=== PATIENT | female | born 2000 | race Caucasian/White ===

== ENCOUNTER 2018-06-15 18:47 | Emergency (ER) | payer MEDICAID ==
[~2018-06-15] VITALS: Ht 152.4 cm; Wt 52.6 kg
[2018-06-15 18:54] VITALS: BP 109/57; PULSE 83; RESP 18; Ht 152.4 cm; Wt 52.6 kg
--- NOTE | 2018-06-15 21:04 | ERD ---
ER Documentation Chief Complaint Chief Complaint 6 wks preg,vag bleed x 1day, pelvic&back pains, too HPI This is a 17-year-old female who presents emergency department with complaints of vaginal bleeding, pelvic pain for about a day. Stated that this started around this 5:30 PM today. Change one vaginal pad today. Patient stated that he was bright red with no clots. LMP: 04/21/2018. BENTLEY: 01/21/2019. . Denies headache, dizziness, blurred vision, neck pain, neck stiffness, difficult swallowing, difficult breathing lying flat, shoulder pain, chest pain, back pain, nausea, vomiting, constipation, diarrhea, urinary symptoms, difficulty walking, recent travel, recent long travel, recent exposure to any illness, rece nt antibiotic use in the last 3 months, fever, chills, seizures, calf pain. No known drug allergies. No past medical history. No surgeries. Medication: vitamins. ROS All systems reviewed and are negative except as per history of present illness. Medications Home Meds Active Scripts Vit No.124/Iron/FA ( Vitamin Tablet) 1 Each Tablet, 1 EACH PO DAILY, #30 TAB Prov:ERINBANMADYAR F 06/15/18 Acetaminophen* (Tylophen*) 500 Mg Capsule, 1 CAP PO Q6H PRN for PAIN AND OR ELEVATED TEMP, #20 CAP Prov:BRAYANILABANMADYAR F 06/15/18 Allergies Allergies: Coded Allergies: No Known Allergy (Unverified , 06/15/18) PMhx/Soc Medical and Surgical Hx: pt denies Medical Hx, pt denies Surgical Hx Hx Alcohol Use: No Hx Substance Use: No Hx Tobacco Use: No Smoking Status: Never smoker Physical Exam Vitals Vital Signs Date Temp Pulse Resp B/P (MAP) Pulse Ox O2 O2 Flow FiO2 Time Delivery Rate 06/15/18 98.9 83 18 109/57 100 18:54 (74) Physical Exam Const: No acute distress Head: Atraumatic Eyes: Normal Conjunctiva ENT: Normal External Ears, Nose and Mouth. Neck: Full range of motion. No meningismus. Resp: Clear to auscultation bilaterally Cardio: Regular rate and rhythm, no murmurs Abd: Soft, non tender, non distended. Normal bowel sounds. Negative Gillis sign. No CVA tenderness. Skin: No petechiae or rashes. Color appears normal for ethnicity. Back: No midline or flank tenderness Ext: No cyanosis, or edema Neur: Awake and alert. No neurological deficits. Psych: Normal Mood and Affect Result Diagram: 06/15/18203206/15/182032 Results 24 hrs Laboratory Tests Test 06/15/18 20:33 06/15/18 20:34 White Blood Count 12.1 10^3/ul Red Blood Count 4.78 10^6/ul Hemoglobin 13.8 g/dl Hematocrit 39.9 % Mean Corpuscular Volume 83.5 fl Mean Corpuscular Hemoglobin 28.9 pg Mean Corpuscular Hemoglobin Concent 34.6 g/dl Red Cell Distribution Width 14.4 % Platelet Count 332 10^3/UL Mean Platelet Volume 10.1 fl Immature Granulocytes % 0.200 % Neutrophils % 74.6 % Lymphocytes % 17.3 % Monocytes % 7.4 % Eosinophils % 0.3 % Basophils % 0.2 % Nucleated Red Blood Cells % 0.0 /100WBC Immature Granulocytes # 0.030 10^3/ul Neutrophils # 9.0 10^3/ul Lymphocytes # 2.1 10^3/ul Monocytes # 0.9 10^3/ul Eosinophils # 0.0 10^3/ul Basophils # 0.0 10^3/ul Nucleated Red Blood Cells # 0.0 10^3/ul Sodium Level 138 mmol/L Potassium Level 3.9 mmol/L Chloride Level 102 mmol/L Carbon Dioxide Level 24 mmol/L Anion Gap 12 Blood Urea Nitrogen 9 mg/dl Creatinine 0.58 mg/dl Est Glomerular Filtrat Rate mL/min > 60 mL/min Glucose Level 89 mg/dl Calcium Level 10.0 mg/dl Total Bilirubin 0.1 mg/dl Direct Bilirubin 0.00 mg/dl Indirect Bilirubin 0.1 mg/dl Aspartate Amino Transf (AST/SGOT) 26 IU/L Alanine Aminotransferase (ALT/SGPT) 14 IU/L Alkaline Phosphatase 61 IU/L Total Protein 8.5 g/dl Albumin 4.7 g/dl Globulin 3.80 g/dl Albumin/Globulin Ratio 1.23 Amylase Level 164 U/L Lipase 196 U/L Beta HCG, Quantitative 966509.0 mIU/ml Urine Color YELLOW Urine Clarity SLIGHTLY CLOUDY Urine pH 6.0 Urine Specific [place] 1.018 Urine Ketones NEGATIVE mg/dL Urine Nitrite NEGATIVE mg/dL Urine Bilirubin NEGATIVE mg/dL Urine Urobilinogen 1+ mg/dL Urine Leukocyte Esterase NEGATIVE Allen/ul Urine Microscopic RBC 1 /HPF Urine Microscopic WBC 3 /HPF Urine Squamous Epithelial Cells FEW /HPF Urine Hemoglobin 3+ mg/dL Urine Glucose NEGATIVE mg/dL Urine Total Protein NEGATIVE mg/dl Procedures/MDM Diagnostic tests: Urinalysis: Reviewed. Culture urine: Sent. Blood works: Reviewed. HCG quantitative: 473548.0 Type and Rh: O positive. OB ultrasound: Single live intrauterine gestation of approximately 7 weeks 6 days. Estimated date of delivery is 01/26/2019. Small subchorionic hematoma. Continued follow-up is recommended. Treatment: Tylenol p.o. Re-evaluation: No episode of emesis in the emergency department. Denies vaginal bleeding. Negative Gillis sign. No CVA tenderness. No signs of hemorrhaging. Stated that she feels comfortable going home. Differential diagnosis I have low suspicion for ectopic , ruptured ectopic , hemorrhage, sepsis, pyelonephritis, appendicitis, cholecystitis, pancreatitis, diverticulitis. Final diagnosis: Vaginal bleeding in . Prescription: Tylenol. vitamins. Follow-up with OB in the next 24-48 hours. Resources was also provided. Come back here in the emergency department for any new symptoms or any worsening symptoms. All questions and concerns were answered. Patient and family members verbalized understanding and agreed with plan of care. Hemodynamically stable on discharge. Departure Diagnosis: Primary Impression: Vaginal bleeding in patient at less than 20 weeks gestation Additional Impressions: Threatened miscarriage Threatened Condition: Stable Additional Instructions: Follow-up with OB in the next 24-48 hours. Resources was also provided. Come back here in the emergency department for any new symptoms or any worsening symptoms. ALEXEI STEVE Jun 15, 2018 21:04
[2018-06-15] MEDS ORDERED: ACET500C5 PO (22:10)
[2018-06-15] MEDS ORDERED: PREN-93 PO (22:10)
== END 2018-06-15 22:20 | disposition home or self-care (01) ==
LOC: FTE 18:47
DX: O20.0 Threatened abortion (principal); R10.2 Pelvic and perineal pain; Z3A.01 Less than 8 weeks gestation of pregnancy
CPT/HCPCS: 76801; 80053; 81001; 82150; 83690; 84702; 85025; 86900; 86901; 87086